=== PATIENT | female | born 1945 | race Two or more races ===

== ENCOUNTER → 2017-08-25 | Outpatient (CLI) | payer OTHER | END | disposition home or self-care (01) | LOC: RAD 08:22 → MAMO-SONO 09:15 | DX: K21.9 Gastro-esophageal reflux disease without esophagitis (principal); R10.13 Epigastric pain; R10.2 Pelvic and perineal pain; I10 Essential (primary) hypertension ==

== ENCOUNTER 2018-02-11 12:53 | Outpatient (CLI) | payer OTHER | END 2018-02-11 12:55 | disposition home or self-care (01) | LOC: RAD 12:53 | DX: M50.13 Cervical disc disorder with radiculopathy, cervicothoracic region (principal); M79.18 Myalgia, other site ==

== ENCOUNTER 2019-01-15 07:43 | Outpatient (CLI) | payer OTHER | END 2019-01-15 07:54 | disposition home or self-care (01) | LOC: RX STUDY 07:43 | DX: K22.0 Achalasia of cardia (principal); M17.0 Bilateral primary osteoarthritis of knee ==

== ENCOUNTER 2020-11-26 08:15 | Outpatient (CLI) | payer OTHER | END 2020-11-26 08:17 | disposition home or self-care (01) | LOC: MRI 08:15 | PROVIDERS: ATTEND Specialist | DX: M47.12 Other spondylosis with myelopathy, cervical region (principal) | CPT/HCPCS: 72141 ==

== ENCOUNTER 2022-11-08 09:30 | Emergency (ER) | payer OTHER ==
[~2022-11-08] VITALS: Ht 157.5 cm; Wt 61.7 kg
[2022-11-08] MEDS ORDERED: NORVASC5 MG PO (09:46)
[2022-11-08] MEDS ORDERED: COZAAR25 MG PO (09:47)
[2022-11-08] MEDS ORDERED: SYNTHROID75 MCG PO (09:48)
[2022-11-08] MEDS ORDERED: CRESTOR10 MG PO (09:48)
[2022-11-08] MEDS ORDERED: OSTERA TABLET1 EACH (09:49)
[2022-11-08] MEDS ORDERED: CYCLOBENZAPRINE10 MG PO (11:09)
[2022-11-08] MEDS ORDERED: CELEBREX200MG PO (11:09)
== END 2022-11-08 11:14 | disposition home or self-care (01) ==
LOC: ER 09:30
DX: M54.50 Low back pain, unspecified (principal); I10 Essential (primary) hypertension; Z91.041 Radiographic dye allergy status
CPT/HCPCS: 72100; 73560; 96372; 99283; J3301

== ENCOUNTER 2023-05-06 09:26 | Emergency (ER) | payer OTHER ==
[~2023-05-06] VITALS: Ht 157.5 cm; Wt 58.5 kg
[~2023-05-06 09:26] MED LIST: CELEBREX200MG PO; COZAAR25 MG PO; CRESTOR10 MG PO; CYCLOBENZAPRINE10 MG PO; NORVASC5 MG PO; OSTERA TABLET1 EACH; SYNTHROID75 MCG PO
[2023-05-06] MEDS ORDERED: COSOPT PF EYE1 EACH OP (10:08)
[2023-05-06 10:48] LABS: HEMATOCRIT 42.1 % (36.0-45.00); HEMOGLOBIN 14.4 g/dL (12.0-15.00); MEAN CELL VOLUME 86.3 fL (80.00-100.00); MEAN CORPUSCULAR HEMOGLOBIN 29.5 pg (27.00-32.0); MEAN CORPUSCULAR HGB CONC 34.2 g/dl (32.0-36.0); PLATELET COUNT 210 K/uL (150-450); RED BLOOD COUNT 4.87 M/uL (4.00-6.00); RED CELL DISTRIBUTION WIDTH 13.7 % (11.5-14.5)
== END 2023-05-06 11:12 | disposition home or self-care (01) ==
LOC: ER 09:27
PROVIDERS: General Practice
DX: H10.33 Unspecified acute conjunctivitis, bilateral (principal); Z91.041 Radiographic dye allergy status; I10 Essential (primary) hypertension; E03.9 Hypothyroidism, unspecified; E78.00 Pure hypercholesterolemia, unspecified; E11.9 Type 2 diabetes mellitus without complications